=== PATIENT | female | born 1945 | race American Indian/Alaskan Native ===

== ENCOUNTER 2018-09-11 15:27 | Inpatient (IN) | payer MEDICARE ==
[2018-09-11] MEDS ORDERED: NACL 0.9% 1000 ML 1,000 ML IV ONE (15:40)
[2018-09-11 16:45] LABS: Basophils % (Auto) 0.7 % (0.0-1.8); Eosinophils % (Auto) 0.3 % (0.0-4.3); Hematocrit 35.9 % (30.3-42.9); Hemoglobin 12.2 gm/dl (10.1-14.3); Lymphocytes # (Auto) 1.3 K/mm3 (1.2-5.4); Lymphocytes % (Auto) 21.2 % (13.4-35.0); Mean Corpuscular HGB Conc 34 % (30-34); Mean Corpuscular Volume 88 fl (79-97); Monocytes # (Auto) 0.4 K/mm3 (0.0-0.8); Monocytes % (Auto) 6.7 % (0.0-7.3); Platelet Count 307 K/mm3 (140-440); Red Blood Count 4.07 M/mm3 (3.65-5.03); Red Cell Distribution Width 15.2 % (13.2-15.2)
[2018-09-11 17:05] LABS: Alanine Aminotransferase 11 units/L (7-56); Albumin 4.2 g/dL (3.9-5); BUN/Creatinine Ratio 21; Blood Urea Nitrogen 19 mg/dL (7-17); Calcium 9.1 mg/dL (8.4-10.2); Hemolysis Index 8
--- NOTE | 2018-09-11 17:58 | Emergency Department Report ---
ED General Adult HPI - General Chief complaint: GI Bleed Stated complaint: RECTUM BLEEDING Time Seen by Provider: 09/11/18 17:00 Source: patient Mode of arrival: Ambulatory Limitations: No Limitations - History of Present Illness Initial comments: patient presents to the ED for dark blood per rectum x 3 that started this morning. The patient denies abdominal or rectal pain. has never had a colonoscopy. Patient also denies CP,SOB, or GALAN. Patient also denies been on iron supplements or taking Pepto-Bismol. Patient further denies being on blood thinners or antiplatelet medications -: Sudden Radiation: non-radiation Severity scale (0 -10): 0 Consistency: constant Improves with: none Worsens with: none Associated Symptoms: denies other symptoms Treatments Prior to Arrival: none - Related Data Allergies Allergy/AdvReac Type Severity Reaction Status Date / Time No Known Allergies Allergy Unverified 09/11/18 15:40 ED Review of Systems ROS: Stated complaint: RECTUM BLEEDING Other details as noted in HPI Comment: All other systems reviewed and negative Constitutional: denies: chills, fever Eyes: denies: eye pain, eye discharge, vision change ENT: denies: ear pain, throat pain Respiratory: denies: cough, shortness of breath, wheezing Cardiovascular: denies: chest pain, palpitations Endocrine: no symptoms reported Gastrointestinal: melena. denies: abdominal pain, nausea, diarrhea Genitourinary: denies: urgency, dysuria, discharge Musculoskeletal: denies: back pain, joint swelling, arthralgia Skin: denies: rash, lesions Neurological: denies: headache, weakness, paresthesias Psychiatric: denies: anxiety, depression Hematological/Lymphatic: denies: easy bleeding, easy bruising ED Past Medical Hx - Past Medical History Hx Hypertension: Yes Hx Diabetes: Yes - Surgical History Past Surgical History?: No - Social History Smoking Status: Never Smoker Substance Use Type: None ED Physical Exam - General Limitations: No Limitations General appearance: alert, in no apparent distress - Head Head exam: Present: atraumatic, normocephalic - Eye Eye exam: Present: normal appearance, PERRL, EOMI - ENT ENT exam: Present: mucous membranes moist - Neck Neck exam: Present: normal inspection - Respiratory Respiratory exam: Present: normal lung sounds bilaterally. Absent: respiratory distress, wheezes, rales - Cardiovascular Cardiovascular Exam: Present: regular rate, normal rhythm. Absent: systolic murmur, diastolic murmur, rubs, gallop - GI/Abdominal GI/Abdominal exam: Present: soft, normal bowel sounds. Absent: distended, tenderness - Rectal Rectal exam: Present: heme (+) stool (chaperoned by Nurse fina Pool), black stool - Extremities Exam Extremities exam: Present: normal inspection - Back Exam Back exam: Present: normal inspection - Neurological Exam Neurological exam: Present: alert, oriented X3, CN II-XII intact. Absent: motor sensory deficit - Psychiatric Psychiatric exam: Present: normal affect, normal mood - Skin Skin exam: Present: warm, dry, intact, normal color. Absent: rash ED Course Vital Signs 09/11/18 15:38 Temperature 98.4 F Pulse Rate 126 H Respiratory 16 Rate Blood Pressure 156/83 O2 Sat by Pulse 100 Oximetry ED Medical Decision Making - Lab Data Result diagrams: 09/11/18 16:09 09/11/18 16:09 Lab Results 09/11/18 09/11/18 09/11/18 Range/Units 16:09 16:09 16:09 WBC 6.2 (4.5-11.0) K/mm3 RBC 4.07 (3.65-5.03) M/mm3 Hgb 12.2 (10.1-14.3) gm/dl Hct 35.9 (30.3-42.9) % MCV 88 (79-97) fl MCH 30 (28-32) pg MCHC 34 (30-34) % RDW 15.2 (13.2-15.2) % Plt Count 307 (140-440) K/mm3 Lymph % (Auto) 21.2 (13.4-35.0) % [place] % (Auto) 6.7 (0.0-7.3) % Eos % (Auto) 0.3 (0.0-4.3) % Baso % (Auto) 0.7 (0.0-1.8) % Lymph # 1.3 (1.2-5.4) K/mm3 [place] # 0.4 (0.0-0.8) K/mm3 Eos # 0.0 (0.0-0.4) K/mm3 Baso # 0.0 (0.0-0.1) K/mm3 Seg Neutrophils % 71.1 H (40.0-70.0) % Seg Neutrophils # 4.4 (1.8-7.7) K/mm3 PT (12.2-14.9) Sec. INR (0.87-1.13) APTT (24.2-36.6) Sec. Sodium 137 (137-145) mmol/L Potassium 4.3 (3.6-5.0) mmol/L Chloride 97.2 L (98-107) mmol/L Carbon Dioxide 23 (22-30) mmol/L Anion Gap 21 mmol/L BUN 19 H (7-17) mg/dL Creatinine 0.9 (0.7-1.2) mg/dL Estimated GFR > 60 ml/min BUN/Creatinine Ratio 21 % Glucose 249 H (65-100) mg/dL Calcium 9.1 (8.4-10.2) mg/dL Total Bilirubin 0.20 (0.1-1.2) mg/dL AST 13 (5-40) units/L ALT 11 (7-56) units/L Alkaline Phosphatase 47 (35-129) units/L Total Protein 7.6 (6.3-8.2) g/dL Albumin 4.2 (3.9-5) g/dL Albumin/Globulin Ratio 1.2 % Urine Color (Yellow) Urine Turbidity (Clear) Urine pH (5.0-7.0) Ur Specific [place] (1.003-1.030) Urine Protein (Negative) mg/dL Urine Glucose (UA) (Negative) mg/dL Urine Ketones (Negative) mg/dL Urine Blood (Negative) Urine Nitrite (Negative) Urine Bilirubin (Negative) Urine Urobilinogen (<2.0) mg/dL Ur Leukocyte Esterase (Negative) Urine WBC (Auto) (0.0-6.0) /HPF Urine RBC (Auto) (0.0-6.0) /HPF U Epithel Cells (Auto) (0-13.0) /HPF Hyaline Casts /LPF Blood Type O POSITIVE Antibody Screen Negative 09/11/18 09/11/18 Range/Units 17:57 18:18 WBC (4.5-11.0) K/mm3 RBC (3.65-5.03) M/mm3 Hgb (10.1-14.3) gm/dl Hct (30.3-42.9) % MCV (79-97) fl MCH (28-32) pg MCHC (30-34) % RDW (13.2-15.2) % Plt Count (140-440) K/mm3 Lymph % (Auto) (13.4-35.0) % [place] % (Auto) (0.0-7.3) % Eos % (Auto) (0.0-4.3) % Baso % (Auto) (0.0-1.8) % Lymph # (1.2-5.4) K/mm3 [place] # (0.0-0.8) K/mm3 Eos # (0.0-0.4) K/mm3 Baso # (0.0-0.1) K/mm3 Seg Neutrophils % (40.0-70.0) % Seg Neutrophils # (1.8-7.7) K/mm3 PT 12.8 (12.2-14.9) Sec. INR 0.92 (0.87-1.13) APTT 28.6 (24.2-36.6) Sec. Sodium (137-145) mmol/L Potassium (3.6-5.0) mmol/L Chloride (98-107) mmol/L Carbon Dioxide (22-30) mmol/L Anion Gap mmol/L BUN (7-17) mg/dL Creatinine (0.7-1.2) mg/dL Estimated GFR ml/min BUN/Creatinine Ratio % Glucose (65-100) mg/dL Calcium (8.4-10.2) mg/dL Total Bilirubin (0.1-1.2) mg/dL AST (5-40) units/L ALT (7-56) units/L Alkaline Phosphatase (35-129) units/L Total Protein (6.3-8.2) g/dL Albumin (3.9-5) g/dL Albumin/Globulin Ratio % Urine Color Yellow (Yellow) Urine Turbidity Clear (Clear) Urine pH 5.0 (5.0-7.0) Ur Specific [place] 1.013 (1.003-1.030) Urine Protein 30 mg/dl (Negative) mg/dL Urine Glucose (UA) 150 (Negative) mg/dL Urine Ketones 20 (Negative) mg/dL Urine Blood Sm (Negative) Urine Nitrite Neg (Negative) Urine Bilirubin Neg (Negative) Urine Urobilinogen < 2.0 (<2.0) mg/dL Ur Leukocyte Esterase Sm (Negative) Urine WBC (Auto) 11.0 H (0.0-6.0) /HPF Urine RBC (Auto) 5.0 (0.0-6.0) /HPF U Epithel Cells (Auto) 1.0 (0-13.0) /HPF Hyaline Casts 3 /LPF Blood Type Antibody Screen - Radiology Data Radiology results: report reviewed Referring Physician: ALETA MORAN Patient Name: LIEN CALL Date of : 1945 Sex: Female Report Date: 2018-09-11 Report Status: Finalized [facility] [address] [place] [address] Cat Scan Report Signed Patient: LIEN CALL MR#: [id number] : 1945 Acct:[id number] Age/Sex: 73 / F ADM Date: 09/11/18 Loc: ED Attending Dr: Ordering Physician: ALETA MORAN MD Date of Service: 09/11/18 Procedure(s): CT abdomen pelvis wo con Accession Number(s): [id number] cc: ALETA MORAN MD FINAL REPORT EXAM: CT ABDOMEN PELVIS WO CON HISTORY: gi bleed TECHNIQUE: CT examination of the abdomen and pelvis without IV contrast PRIORS: None. FINDINGS: Slight bronchiectasis both lung bases. Degenerative change in the regional skeleton. No acute fracture. Normal noncontrast appearance of the liver, gallbladder, adrenals, pancreas, and spleen. Normal caliber abdominal aorta with severe calcified atherosclerotic plaque extending into the iliac and femoral arteries. Normal caliber IVC. A nonspecific, smoothly marginated, low density, simple appearing left renal lesion is statistically most likely a cyst. Otherwise normal-appearing kidneys and visible ureteral segments. Pelvic ureters partly obscured by adjacent anatomy. Very small fat containing umbilical hernia. Small fat containing left inguinal hernia. No retroperitoneal adenopathy. No evidence of mesenteric mass. Normal-appearing stomach and duodenum. No small bowel distention in the abdomen and pelvis. No pelvic free fluid. Normal-appearing urinary bladder, uterus, adnexae, and rectum. Moderate to severe diverticulosis in the distal transverse colon, descending colon, and sigmoid colon. There is nonspecific scattered mural thickening in this portion of colon which may be sequela of prior diverticulitis. Differential includes current mild diverticulitis especially in the region of the descending colon and sigmoid colon junction where there is slight adjacent fat stranding. No perforation or diverticular abscess. Moderate diverticulosis is also noted in the ascending and proximal/mid transverse colon diffusely. No definite associ ated mural thickening. Diverticulosis also present in the cecum. No gross ascites, free air, or colonic distention. Normal-appearing terminal ileum and appendix. IMPRESSION: Extensive diverticulosis from cecum to distal sigmoid colon. Scattered mural thickening in the descending colon and sigmoid colon may be chronic sequela of prior diverticulitis. Differential includes mild acute diverticulitis at the junction between the descending and sigmoid colon since there is adjacent fat stranding in this location. Slight bronchiectasis both lung bases Small fat containing left inguinal hernia and very small fat containing umbilical hernia Transcribed By: DIANE Dictated By: JILLIAN KHAN MD Electronically Authenticated By: JILLIAN KHAN MD Signed Date/Time: 09/11/181853 DD/ 52 TD/TT: 09/11/181852 - Medical Decision Making Discussed results with patient Critical care attestation.: If time is entered above; I have spent that time in minutes in the direct care of this critically ill patient, excluding procedure time. ED Disposition Clinical Impression: UTI (urinary tract infection), GI bleed, Diverticulosis Disposition: OP ADMIT IP TO THIS HOSP Is pt being admited?: Yes Does the pt Need Aspirin: No Condition: Fair Referrals: ALEC GAMBLE MD [Primary Care Provider] - 3-5 Days Forms: Accompanied Note
[2018-09-11 18:43] LABS: INR 0.92 (0.87-1.13); Partial Thromboplastin Time 28.6 Sec. (24.2-36.6)
[2018-09-11 18:45] LABS: Bilirubin,Urine NEG (Negative); Blood,Urine SM (Negative); Color,Urine Yellow (Yellow); Hyaline Casts,Urine 3 /LPF; Urobilinogen,Urine < 2.0 mg/dL (<2.0)
--- NOTE | 2018-09-11 18:54 | Cat Scan Report ---
FINAL REPORT EXAM: CT ABDOMEN PELVIS WO CON HISTORY: gi bleed TECHNIQUE: CT examination of the abdomen and pelvis without IV contrast PRIORS: None. FINDINGS: Slight bronchiectasis both lung bases. Degenerative change in the regional skeleton. No acute fracture. Normal noncontrast appearance of the liver, gallbladder, adrenals, pancreas, and spleen. Normal calib er abdominal aorta with severe calcified atherosclerotic plaque extending into the iliac and femoral arteries. Normal caliber IVC. A nonspecific, smoothly marginated, low density, simple appearing left renal lesion is statistically most likely a cyst. Otherwise normal-appearing kidneys and visible ureteral segments. Pelvic ureters partly obscured by adjacent anatomy. Very small fat containing umbilical hernia. Small fat containing left inguinal hernia. No retroperitoneal adenopathy. No evidence of mesenteric mass. Normal-appearing stomach and duodenum. No small bowel distention in the abdomen and pelvis. No pelvic free fluid. Normal-appearing urinary bladder, uterus, adnexae, and rectum. Moderate to severe diverticulosis in the distal transverse colon, descending colon, and sigmoid colon . There is nonspecific scattered mural thickening in this portion of colon which may be sequela of pr ior diverticulitis. Differential includes current mild diverticulitis especially in the region of the descending colon and sigmoid colon junction where there is slight adjacent fat stranding. No perfora tion or diverticular abscess. Moderate diverticulosis is also noted in the ascending and proximal/mid transverse colon diffusely. N o definite associated mural thickening. Diverticulosis also present in the cecum. No gross ascites, free air, or colonic distention. Normal-appearing terminal ileum and appendix. IMPRESSION: Extensive diverticulosis from cecum to distal sigmoid colon. Scattered mural thickening in the descen ding colon and sigmoid colon may be chronic sequela of prior diverticulitis. Differential includes mi ld acute diverticulitis at the junction between the descending and sigmoid colon since there is adjac ent fat stranding in this location. Slight bronchiectasis both lung bases Small fat containing left inguinal hernia and very small fat containing umbilical hernia
[2018-09-11] MEDS ORDERED: FLAGYL 500 MG/100 ML 500 MG/100 ML BAG IV ONE ×2 (19:34→20:41)
[2018-09-11] MEDS ORDERED: LEVAQUIN 750MG/150ML 750 MG/150 ML BAG IV ONE (19:34)
[2018-09-12] MEDS ORDERED: ZOFRAN IV PRN
[2018-09-12] MEDS ORDERED: SODIUM CHLORIDE FLUSH SYRINGE 10 ML IV PRN
[2018-09-12] MEDS ORDERED: DILAUDID IV PRN
[2018-09-12] MEDS ORDERED: TYLENOL PO PRN
[2018-09-12] MEDS: D5NS 1,000 ML IV SCH ×2 (01:18→14:46)
[2018-09-12] MEDS: PROTONIX IV SCH ×3 (01:18→22:32)
[2018-09-12 02:07] LABS: Hematocrit 33.4 % (30.3-42.9)
--- NOTE | 2018-09-12 05:56 | History and Physical Report ---
History of Present Illness Date of examination: 09/11/18 Date of admission: 09/11/18 19:35 Chief complaint: Lower GI bleed since AM History of present illness: 73 year old female presents to ER for melanotic stools since AM.3 episodes till now.No Hematemesis.No abd pain.No syncope or Light headedness.Not on any NSAIDS or blood thinners.No exacerbating or relieving factors.No fever or chills.No recent weight loss. Past Medical History Hx Hypertension: Yes Hx Diabetes: Yes Surgical History Past Surgical History?: No Social History Smoking Status: Never Smoker Substance Use Type: None Review of systems ROS: Stated complaint: RECTUM BLEEDING Other details as noted in HPI Comment: All other systems reviewed and negative Constitutional: denies: chills, fever Eyes: denies: eye pain, eye discharge, vision change ENT: denies: ear pain, throat pain Respiratory: denies: cough, shortness of breath, wheezing Cardiovascular: denies: chest pain, palpitations Endocrine: no symptoms reported Gastrointestinal: melena. denies: abdominal pain, nausea, diarrhea Genitourinary: denies: urgency, dysuria, discharge Musculoskeletal: denies: back pain, joint swelling, arthralgia Skin: denies: rash, lesions Neurological: denies: headache, weakness, paresthesias Psychiatric: denies: anxiety, depression Hematological/Lymphatic: denies: easy bleeding, easy bruising Medications and Allergies Allergies Allergy/AdvReac Type Severity Reaction Status Date / Time No Known Allergies Allergy Unverified 09/11/18 15:40 Home Medications Medication Instructions Recorded Confirmed Last Taken Type Lisinopril/Hydrochlorothiazide 1 each PO DAILY 09/11/18 09/11/18 Unknown History [Zestoretic 20-12.5 mg] Potassium Chloride [K-Dur] 10 meq PO DAILY 09/11/18 09/11/18 Unknown History Pravastatin [Pravachol] 20 mg PO DAILY 09/11/18 09/11/18 Unknown History amLODIPine [Norvasc] 10 mg PO DAILY 09/11/18 09/11/18 Unknown History glipiZIDE [Glucotrol] 5 mg PO BID 09/11/18 09/11/18 Unknown History metFORMIN [Glucophage] 500 mg PO TID 09/11/18 09/11/18 Unknown History Active Meds: Active Medications Acetaminophen (Tylenol) 650 mg PO Q4H PRN PRN Reason: Pain MILD(1-3)/Fever >100.5/GALAN Hydromorphone HCl (Dilaudid) 0.5 mg IV Q3H PRN PRN Reason: Pain , Severe (7-10) Dextrose/Sodium Chloride (D5ns) 1,000 mls @ 75 mls/hr IV DIRECT [facility] Last Admin: 09/12/18 01:18 Dose: 75 mls/hr Documented by: Insulin Human Lispro (Humalog) 0 unit SUB-Q Q6HR [facility]; Protocol Ondansetron HCl (Zofran) 4 mg IV Q8H PRN PRN Reason: Nausea And Vomiting Pantoprazole Sodium (Protonix) 40 mg IV BID [facility] Last Admin: 09/12/18 01:18 Dose: 40 mg Documented by: Sodium Chloride (Sodium Chloride Flush Syringe 10 Ml) 10 ml IV BID [facility] Sodium Chloride (Sodium Chloride Flush Syringe 10 Ml) 10 ml IV PRN PRN PRN Reason: LINE FLUSH Exam - Constitutional Vitals: Temp Pulse Resp BP Pulse Ox 98.1 F 88 18 94/52 98 09/12/18 02:57 09/12/18 02:57 09/12/18 02:57 09/12/18 02:57 09/12/18 02:57 General appearance: Present: no acute distress, well-nourished - EENT Eyes: Present: PERRL ENT: hearing intact, clear oral mucosa - Neck Neck: Present: supple, normal ROM - Respiratory Respiratory effort: normal Respiratory: bilateral: CTA - Cardiovascular Heart rate: 78 Rhythm: regular Heart Sounds: Present: S1 & S2. Absent: rub, click - Extremities Extremities: no ischemia, pulses intact, pulses symmetrical, No edema Peripheral Pulses: within normal limits - Abdominal General gastrointestinal: Present: soft, non-tender, non-distended, normal bowel sounds Female genitourinary: Present: normal - Rectal Rectal Exam: stool bloody - Integumentary Integumentary: Present: clear, warm, dry - Musculoskeletal Musculoskeletal: gait normal, strength equal bilaterally - Psychiatric Psychiatric: appropriate mood/affect, intact judgment & insight - Neurologic Neurologic: CNII-XII intact, moves all extremities - Allied Health Allied health notes reviewed: nursing, case management Results - Labs CBC & Chem 7: 09/12/18 01:49 09/11/18 16:09 Labs: Laboratory Last Values WBC 6.2 K/mm3 (4.5-11.0) 09/11/18 16:09 RBC 4.07 M/mm3 (3.65-5.03) 09/11/18 16:09 Hgb 11.0 gm/dl (10.1-14.3) 09/12/18 01:49 Hct 33.4 % (30.3-42.9) 09/12/18 01:49 MCV 88 fl (79-97) 09/11/18 16:09 MCH 30 pg (28-32) 09/11/18 16:09 MCHC 34 % (30-34) 09/11/18 16:09 RDW 15.2 % (13.2-15.2) 09/11/18 16:09 Plt Count 307 K/mm3 (140-440) 09/11/18 16:09 Lymph % (Auto) 21.2 % (13.4-35.0) 09/11/18 16:09 [place] % (Auto) 6.7 % (0.0-7.3) 09/11/18 16:09 Eos % (Auto) 0.3 % (0.0-4.3) 09/11/18 16:09 Baso % (Auto) 0.7 % (0.0-1.8) 09/11/18 16:09 Lymph # 1.3 K/mm3 (1.2-5.4) 09/11/18 16:09 [place] # 0.4 K/mm3 (0.0-0.8) 09/11/18 16:09 Eos # 0.0 K/mm3 (0.0-0.4) 09/11/18 16:09 Baso # 0.0 K/mm3 (0.0-0.1) 09/11/18 16:09 Seg Neutrophils % 71.1 % (40.0-70.0) H 09/11/18 16:09 Seg Neutrophils # 4.4 K/mm3 (1.8-7.7) 09/11/18 16:09 PT 12.8 Sec. (12.2-14.9) 09/11/18 17:57 INR 0.92 (0.87-1.13) 09/11/18 17:57 APTT 28.6 Sec. (24.2-36.6) 09/11/18 17:57 Sodium 137 mmol/L (137-145) 09/11/18 16:09 Potassium 4.3 mmol/L (3.6-5.0) 09/11/18 16:09 Chloride 97.2 mmol/L (98-107) L 09/11/18 16:09 Carbon Dioxide 23 mmol/L (22-30) 09/11/18 16:09 Anion Gap 21 mmol/L 09/11/18 16:09 BUN 19 mg/dL (7-17) H 09/11/18 16:09 Creatinine 0.9 mg/dL (0.7-1.2) 09/11/18 16:09 Estimated GFR > 60 ml/min 09/11/18 16:09 BUN/Creatinine Ratio 21 % 09/11/18 16:09 Glucose 249 mg/dL (65-100) H 09/11/18 16:09 Hemoglobin A1c 9.2 % (4-6) H 09/12/18 01:49 Calcium 9.1 mg/dL (8.4-10.2) 09/11/18 16:09 Total Bilirubin 0.20 mg/dL (0.1-1.2) 09/11/18 16:09 AST 13 units/L (5-40) 09/11/18 16:09 ALT 11 units/L (7-56) 09/11/18 16:09 Alkaline Phosphatase 47 units/L (35-129) 09/11/18 16:09 Total Protein 7.6 g/dL (6.3-8.2) 09/11/18 16:09 Albumin 4.2 g/dL (3.9-5) 09/11/18 16:09 Albumin/Globulin Ratio 1.2 % 09/11/18 16:09 Urine Color Yellow (Yellow) 09/11/18 18:18 Urine Turbidity Clear (Clear) 09/11/18 18:18 Urine pH 5.0 (5.0-7.0) 09/11/18 18:18 Ur Specific [place] 1.013 (1.003-1.030) 09/11/18 18:18 Urine Protein 30 mg/dl mg/dL (Negative) 09/11/18 18:18 Urine Glucose (UA) 150 mg/dL (Negative) 09/11/18 18:18 Urine Ketones 20 mg/dL (Negative) 09/11/18 18:18 Urine Blood Sm (Negative) 09/11/18 18:18 Urine Nitrite Neg (Negative) 09/11/18 18:18 Urine Bilirubin Neg (Negative) 09/11/18 18:18 Urine Urobilinogen < 2.0 mg/dL (<2.0) 09/11/18 18:18 Ur Leukocyte Esterase Sm (Negative) 09/11/18 18:18 Urine WBC (Auto) 11.0 /HPF (0.0-6.0) H 09/11/18 18:18 Urine RBC (Auto) 5.0 /HPF (0.0-6.0) 09/11/18 18:18 U Epithel Cells (Auto) 1.0 /HPF (0-13.0) 09/11/18 18:18 Hyaline Casts 3 /LPF 09/11/18 18:18 Blood Type O POSITIVE 09/11/18 16:09 Antibody Screen Negative 09/11/18 16:09 Short CBC 09/11/18 09/12/18 Range/Units 16:09 01:49 WBC 6.2 (4.5-11.0) K/mm3 Hgb 12.2 11.0 (10.1-14.3) gm/dl Hct 35.9 33.4 (30.3-42.9) % Plt Count 307 (140-440) K/mm3 BMP 09/11/18 16:09 Sodium 137 Potassium 4.3 Chloride 97.2 L Carbon Dioxide 23 BUN 19 H Creatinine 0.9 Glucose 249 H Calcium 9.1 Liver Function 09/11/18 Range/Units 16:09 Total Bilirubin 0.20 (0.1-1.2) mg/dL AST 13 (5-40) units/L ALT 11 (7-56) units/L Alkaline Phosphatase 47 (35-129) units/L Albumin 4.2 (3.9-5) g/dL Urine 09/11/18 Range/Units 18:18 Urine Color Yellow (Yellow) Urine pH 5.0 (5.0-7.0) Ur Specific [place] 1.013 (1.003-1.030) Urine Protein 30 mg/dl (Negative) mg/dL Urine Glucose (UA) 150 (Negative) mg/dL - Imaging and Cardiology CT scan - abdomen: report reviewed Imaging and Cardiology: CT Abdomen IMPRESSION: Extensive diverticulosis from cecum to distal sigmoid colon . Scattered mural thickening in the descending colon and sigmoid colon may be chronic sequela of prior diverticulitis . Differential includes mild acute diverticulitis at the junction between the descending and sigmoid colon since there is adjacent fat stranding in this location. Slight bronchiectasis both lung bases Small fat containing left inguinal hernia and very small fat containing umbilical hernia Assessment and Plan Advance Directives: Yes (Full code) VTE prophylaxis?: Mechanical Plan of care discussed with patient/family: Yes - Patient Problems (1) Diverticulosis Current Visit: Yes Status: Acute (2) GI bleed Current Visit: Yes Status: Acute Plan to address problem: Possible diverticular bleed Monitor H/H and trasfuse as necessary Keep NPo GI consult IV protonix initiated (3) UTI (urinary tract infection) Current Visit: Yes Status: Acute Qualifiers: Urinary tract infection type: acute cystitis Plan to address problem: On IV Ceftriaxone (4) HTN (hypertension) Current Visit: Yes Status: Chronic Qualifiers: Hypertension type: essential hypertension Qualified Code(s): I10 - Essential (primary) hypertension Plan to address problem: On Catapress patdv (5) T2DM (type 2 diabetes mellitus) Current Visit: Yes Status: Chronic Qualifiers: Diabetes mellitus intermediate insulin use: without rat exterminator use Plan to address problem: Coverage for now (6) DVT prophylaxis Current Visit: Yes Status: Acute Plan to address problem: SCD's only
[2018-09-12] MEDS ORDERED: ROCEPHIN/NS 1 GM/50 ML 1 GM/50 ML BAG IV SCH (06:04)
[2018-09-12] MEDS: HumaLOG SUB-Q SCH ×3 (06:47→17:29)
[2018-09-12 07:28] LABS: Hematocrit 31.5 % (30.3-42.9); Hemoglobin 10.5 gm/dl (10.1-14.3)
--- NOTE | 2018-09-12 09:19 | Gastroenterology Consultation ---
Addendum entered and electronically signed by TRANG MINAYA MD 09/12/18 18:11: pt seen and examined, chart reviewed, consult below reviewed - pt presents w/ rectal bleeding and anemia vss p.e.: nad abd: soft - EGD/colonoscopy in am - other rec as outlined below Original Note: History of Present Illness - Reason for Consult Consult date: 09/12/18 GI bleed Requesting physician: MAGNOLIA LINO - History of Present Illness Patient is a 73 y/o female with PMH of HTN and DM who presented to ED with c/o dark bloody stool to which GI has been consulted. This morning patient was resting in bed w/o acute distress. She reports multiple episodes yesterday of dark red blood stool. Last episode overnight with no active signs of bleeding this am. No hematemesis. Denies fever, CP, SOB, wt loss, abd pain, N/V, dysphagia, diarrhea, or constipation. Takes ASA occasionally at home. No hx of previous GI bleeding, PUD, or liver disease. No prior EGD or colonoscopy. Fhx of GI cancers is unknown. Past History Past Medical History: diabetes, hyperlipidemia Past Surgical History: No surgical history Social history: denies: smoking, alcohol abuse Medications and Allergies Allergies Allergy/AdvReac Type Severity Reaction Status Date / Time No Known Allergies Allergy Unverified 09/11/18 15:40 Home Medications Medication Instructions Recorded Confirmed Last Taken Type Lisinopril/Hydrochlorothiazide 1 each PO DAILY 09/11/18 09/11/18 Unknown History [Zestoretic 20-12.5 mg] Potassium Chloride [K-Dur] 10 meq PO DAILY 09/11/18 09/11/18 Unknown History Pravastatin [Pravachol] 20 mg PO DAILY 09/11/18 09/11/18 Unknown History amLODIPine [Norvasc] 10 mg PO DAILY 09/11/18 09/11/18 Unknown History glipiZIDE [Glucotrol] 5 mg PO BID 09/11/18 09/11/18 Unknown History metFORMIN [Glucophage] 500 mg PO TID 09/11/18 09/11/18 Unknown History Active Meds: Active Medications Acetaminophen (Tylenol) 650 mg PO Q4H PRN PRN Reason: Pain MILD(1-3)/Fever >100.5/GALAN Hydromorphone HCl (Dilaudid) 0.5 mg IV Q3H PRN PRN Reason: Pain , Severe (7-10) Dextrose/Sodium Chloride (D5ns) 1,000 mls @ 75 mls/hr IV DIRECT [facility] Last Admin: 09/12/18 01:18 Dose: 75 mls/hr Documented by: Ceftriaxone Sodium (Rocephin/Ns 1 Gm/50 Ml) 1 gm in 50 mls @ 100 mls/hr IV Q24HR [facility]; Protocol Last Admin: 09/12/18 06:48 Dose: 100 mls/hr Documented by: Insulin Human Lispro (Humalog) 0 unit SUB-Q Q6HR [facility]; Protocol Last Admin: 09/12/18 06:47 Dose: 6 unit Documented by: Ondansetron HCl (Zofran) 4 mg IV Q8H PRN PRN Reason: Nausea And Vomiting Pantoprazole Sodium (Protonix) 40 mg IV BID [facility] Last Admin: 09/12/18 01:18 Dose: 40 mg Documented by: Sodium Chloride (Sodium Chloride Flush Syringe 10 Ml) 10 ml IV BID [facility] Sodium Chloride (Sodium Chloride Flush Syringe 10 Ml) 10 ml IV PRN PRN PRN Reason: LINE FLUSH medications reviewed/updated as required Review of Systems - Review of Systems All systems: negative Gastrointestinal: other (dark bloody stool) Exam - Constitutional Vital Signs: Temp Pulse Resp BP Pulse Ox 98.1 F 75 18 94/52 98 09/12/18 02:57 09/12/18 06:18 09/12/18 02:57 09/12/18 02:57 09/12/18 02:57 General appearance: no acute distress - EENT Eyes: PERRL, EOM intact ENT: hearing intact - Respiratory Respiratory: bilateral: CTA - Cardiovascular Rhythm: regular Heart Sounds: Present: S1 & S2 - Gastrointestinal General gastrointestinal: Present: soft, non-tender, non-distended, normal bowel sounds Rectal Exam: other (dark red blood-stoner out present during exam (Ashlie ORO)) - Neurologic Neurological: alert and oriented x3 - Labs CBC & Chem 7: 09/12/18 06:39 09/11/18 16:09 Lab Results: Laboratory Results - last 24 hr 09/11/18 09/11/18 09/11/18 16:09 16:09 16:09 WBC 6.2 RBC 4.07 Hgb 12.2 Hct 35.9 MCV 88 MCH 30 MCHC 34 RDW 15.2 Plt Count 307 Lymph % (Auto) 21.2 Price % (Auto) 6.7 Eos % (Auto) 0.3 Baso % (Auto) 0.7 Lymph # 1.3 Price # 0.4 Eos # 0.0 Baso # 0.0 Seg Neutrophils % 71.1 H Seg Neutrophils # 4.4 PT INR APTT Sodium 137 Potassium 4.3 Chloride 97.2 L Carbon Dioxide 23 Anion Gap 21 BUN 19 H Creatinine 0.9 Estimated GFR > 60 BUN/Creatinine Ratio 21 Glucose 249 H POC Glucose Hemoglobin A1c Calcium 9.1 Total Bilirubin 0.20 AST 13 ALT 11 Alkaline Phosphatase 47 Total Protein 7.6 Albumin 4.2 Albumin/Globulin Ratio 1.2 Urine Color Urine Turbidity Urine pH Ur Specific [place] Urine Protein Urine Glucose (UA) Urine Ketones Urine Blood Urine Nitrite Urine Bilirubin Urine Urobilinogen Ur Leukocyte Esterase Urine WBC (Auto) Urine RBC (Auto) U Epithel Cells (Auto) Hyaline Casts Blood Type O POSITIVE Antibody Screen Negative 09/11/18 09/11/18 09/12/18 17:57 18:18 01:49 WBC RBC Hgb Hct MCV MCH MCHC RDW Plt Count Lymph % (Auto) Price % (Auto) Eos % (Auto) Baso % (Auto) Lymph # Price # Eos # Baso # Seg Neutrophils % Seg Neutrophils # PT 12.8 INR 0.92 APTT 28.6 Sodium Potassium Chloride Carbon Dioxide Anion Gap BUN Creatinine Estimated GFR BUN/Creatinine Ratio Glucose POC Glucose Hemoglobin A1c 9.2 H Calcium Total Bilirubin AST ALT Alkaline Phosphatase Total Protein Albumin Albumin/Globulin Ratio Urine Color Yellow Urine Turbidity Clear Urine pH 5.0 Ur Specific [place] 1.013 Urine Protein 30 mg/dl Urine Glucose (UA) 150 Urine Ketones 20 Urine Blood Sm Urine Nitrite Neg Urine Bilirubin Neg Urine Urobilinogen < 2.0 Ur Leukocyte Esterase Sm Urine WBC (Auto) 11.0 H Urine RBC (Auto) 5.0 U Epithel Cells (Auto) 1.0 Hyaline Casts 3 Blood Type Antibody Screen 09/12/18 09/12/18 09/12/18 01:49 06:39 06:47 WBC RBC Hgb 11.0 10.5 Hct 33.4 31.5 MCV MCH MCHC RDW Plt Count Lymph % (Auto) Price % (Auto) Eos % (Auto) Baso % (Auto) Lymph # Price # Eos # Baso # Seg Neutrophils % Seg Neutrophils # PT INR APTT Sodium Potassium Chloride Carbon Dioxide Anion Gap BUN Creatinine Estimated GFR BUN/Creatinine Ratio Glucose POC Glucose 303 H Hemoglobin A1c Calcium Total Bilirubin AST ALT Alkaline Phosphatase Total Protein Albumin Albumin/Globulin Ratio Urine Color Urine Turbidity Urine pH Ur Specific [place] Urine Protein Urine Glucose (UA) Urine Ketones Urine Blood Urine Nitrite Urine Bilirubin Urine Urobilinogen Ur Leukocyte Esterase Urine WBC (Auto) Urine RBC (Auto) U Epithel Cells (Auto) Hyaline Casts Blood Type Antibody Screen 09/12/18 08:22 WBC RBC Hgb Hct MCV MCH MCHC RDW Plt Count Lymph % (Auto) Price % (Auto) Eos % (Auto) Baso % (Auto) Lymph # Price # Eos # Baso # Seg Neutrophils % Seg Neutrophils # PT INR APTT Sodium Potassium Chloride Carbon Dioxide Anion Gap BUN Creatinine Estimated GFR BUN/Creatinine Ratio Glucose POC Glucose 237 H Hemoglobin A1c Calcium Total Bilirubin AST ALT Alkaline Phosphatase Total Protein Albumin Albumin/Globulin Ratio Urine Color Urine Turbidity Urine pH Ur Specific [place] Urine Protein Urine Glucose (UA) Urine Ketones Urine Blood Urine Nitrite Urine Bilirubin Urine Urobilinogen Ur Leukocyte Esterase Urine WBC (Auto) Urine RBC (Auto) U Epithel Cells (Auto) Hyaline Casts Blood Type Antibody Screen Assessment and Plan 1.GI bleed -INR 0.92 -H/H 10.5/31.5 -continue to monitor H/H and transfuse as needed -hold blood thinning medications -patient reports an acute onset of rectal bleeding yesterday with dark red bloody stools. No hematemesis, abd pain, or N/V. -no active signs of bleeding this am-rectal exam revealed dark red blood -etiology- unclear if upper vs lower source -will schedule for EGD today, if negative possible colonoscopy tomorrow -Keep NPO -continue PPI -continue supportive care -will follow
[2018-09-12] MEDS: SODIUM CHLORIDE FLUSH SYRINGE 10 ML IV SCH (10:00)
--- NOTE | 2018-09-12 13:25 | Progress Note ---
Assessment and Plan Assessment and plan: Rectal bleeding - H&H stable - No active bleeding - CT showed diverticulosis - GI consulted and colonoscopy tomorrow Diabetes mellitus - Sliding scale insulin and added Lantus daily at bedtime DVT prophylaxis - SCDs because of GI bleed Disposition -Continue inpatient care and possible discharge tomorrow after colonoscopy History Interval history: Patient was seen and evaluated this morning, patient was added and oriented. Patient didn't have any bleeding overnight. Hospitalist Physical - Physical exam Narrative exam: Not in cardiopulmonary distress. The patient appeared well nourished and normally developed. Vital signs as documented. Head exam is unremarkable. No scleral icterus . Neck is without jugular venous distension, thyromegaly, or carotid bruits. Lungs are clear to auscultation. Cardiac exam reveals regular rate and Rhythm. First and second heart sounds no rmal. No murmurs, rubs or gallops. Abdominal exam reveals normal bowel sounds, no masses, no organomegaly and no aortic enlargement. Extremities are nonedematous and both femoral and pedal pulses are normal. W[employer] EN[employer]IC: Alert and oriented 3. No focal weakness. - Constitutional Vitals: Temp Pulse Resp BP Pulse Ox 98.1 F 87 18 94/52 98 09/12/18 02:57 09/12/18 10:00 09/12/18 02:57 09/12/18 02:57 09/12/18 02:57 General appearance: Present: no acute distress, well-nourished Results - Labs CBC & Chem 7: 09/12/18 06:39 09/11/18 16:09 Labs: Laboratory Last Values WBC 6.2 K/mm3 (4.5-11.0) 09/11/18 16:09 RBC 4.07 M/mm3 (3.65-5.03) 09/11/18 16:09 Hgb 10.5 gm/dl (10.1-14.3) 09/12/18 06:39 Hct 31.5 % (30.3-42.9) 09/12/18 06:39 MCV 88 fl (79-97) 09/11/18 16:09 MCH 30 pg (28-32) 09/11/18 16:09 MCHC 34 % (30-34) 09/11/18 16:09 RDW 15.2 % (13.2-15.2) 09/11/18 16:09 Plt Count 307 K/mm3 (140-440) 09/11/18 16:09 Lymph % (Auto) 21.2 % (13.4-35.0) 09/11/18 16:09 [place] % (Auto) 6.7 % (0.0-7.3) 09/11/18 16:09 Eos % (Auto) 0.3 % (0.0-4.3) 09/11/18 16:09 Baso % (Auto) 0.7 % (0.0-1.8) 09/11/18 16:09 Lymph # 1.3 K/mm3 (1.2-5.4) 09/11/18 16:09 [place] # 0.4 K/mm3 (0.0-0.8) 09/11/18 16:09 Eos # 0.0 K/mm3 (0.0-0.4) 09/11/18 16:09 Baso # 0.0 K/mm3 (0.0-0.1) 09/11/18 16:09 Seg Neutrophils % 71.1 % (40.0-70.0) H 09/11/18 16:09 Seg Neutrophils # 4.4 K/mm3 (1.8-7.7) 09/11/18 16:09 PT 12.8 Sec. (12.2-14.9) 09/11/18 17:57 INR 0.92 (0.87-1.13) 09/11/18 17:57 APTT 28.6 Sec. (24.2-36.6) 09/11/18 17:57 Sodium 137 mmol/L (137-145) 09/11/18 16:09 Potassium 4.3 mmol/L (3.6-5.0) 09/11/18 16:09 Chloride 97.2 mmol/L (98-107) L 09/11/18 16:09 Carbon Dioxide 23 mmol/L (22-30) 09/11/18 16:09 Anion Gap 21 mmol/L 09/11/18 16:09 BUN 19 mg/dL (7-17) H 09/11/18 16:09 Creatinine 0.9 mg/dL (0.7-1.2) 09/11/18 16:09 Estimated GFR > 60 ml/min 09/11/18 16:09 BUN/Creatinine Ratio 21 % 09/11/18 16:09 Glucose 249 mg/dL (65-100) H 09/11/18 16:09 POC Glucose 219 (70-105) H 09/12/18 12:05 Hemoglobin A1c 9.2 % (4-6) H 09/12/18 01:49 Calcium 9.1 mg/dL (8.4-10.2) 09/11/18 16:09 Total Bilirubin 0.20 mg/dL (0.1-1.2) 09/11/18 16:09 AST 13 units/L (5-40) 09/11/18 16:09 ALT 11 units/L (7-56) 09/11/18 16:09 Alkaline Phosphatase 47 units/L (35-129) 09/11/18 16:09 Total Protein 7.6 g/dL (6.3-8.2) 09/11/18 16:09 Albumin 4.2 g/dL (3.9-5) 09/11/18 16:09 Albumin/Globulin Ratio 1.2 % 09/11/18 16:09 Urine Color Yellow (Yellow) 09/11/18 18:18 Urine Turbidity Clear (Clear) 09/11/18 18:18 Urine pH 5.0 (5.0-7.0) 09/11/18 18:18 Ur Specific [place] 1.013 (1.003-1.030) 09/11/18 18:18 Urine Protein 30 mg/dl mg/dL (Negative) 09/11/18 18:18 Urine Glucose (UA) 150 mg/dL (Negative) 09/11/18 18:18 Urine Ketones 20 mg/dL (Negative) 09/11/18 18:18 Urine Blood Sm (Negative) 09/11/18 18:18 Urine Nitrite Neg (Negative) 09/11/18 18:18 Urine Bilirubin Neg (Negative) 09/11/18 18:18 Urine Urobilinogen < 2.0 mg/dL (<2.0) 09/11/18 18:18 Ur Leukocyte Esterase Sm (Negative) 09/11/18 18:18 Urine WBC (Auto) 11.0 /HPF (0.0-6.0) H 09/11/18 18:18 Urine RBC (Auto) 5.0 /HPF (0.0-6.0) 09/11/18 18:18 U Epithel Cells (Auto) 1.0 /HPF (0-13.0) 09/11/18 18:18 Hyaline Casts 3 /LPF 09/11/18 18:18 Blood Type O POSITIVE 09/11/18 16:09 Antibody Screen Negative 09/11/18 16:09
[2018-09-12 17:01] LABS: Hematocrit 29.2 % (30.3-42.9)
[2018-09-12] MEDS ORDERED: GOLYTELY PO ONE (20:00)
[2018-09-12] MEDS: LANTUS SUB-Q SCH (22:32)
[2018-09-13] MEDS: HumaLOG SUB-Q SCH ×5 (00:08→22:20)
[2018-09-13] MEDS: SODIUM CHLORIDE FLUSH SYRINGE 10 ML IV SCH ×3 (01:07→22:22)
[2018-09-13] MEDS: D5NS 1,000 ML IV SCH (02:47)
[2018-09-13 06:19] LABS: Alanine Aminotransferase 9 units/L (7-56); Albumin 3.6 g/dL (3.9-5); BUN/Creatinine Ratio 8; Blood Urea Nitrogen 7 mg/dL (7-17); Calcium 8.7 mg/dL (8.4-10.2); Hemolysis Index 9
[2018-09-13 06:26] LABS: Basophils % (Auto) 0.6 % (0.0-1.8); Eosinophils % (Auto) 0.4 % (0.0-4.3); Hematocrit 30.7 % (30.3-42.9); Hemoglobin 10.3 gm/dl (10.1-14.3); Lymphocytes # (Auto) 1.9 K/mm3 (1.2-5.4); Lymphocytes % (Auto) 42.2 % (13.4-35.0); Mean Corpuscular HGB Conc 33 % (30-34); Mean Corpuscular Volume 89 fl (79-97); Monocytes # (Auto) 0.7 K/mm3 (0.0-0.8); Monocytes % (Auto) 14.4 % (0.0-7.3); Platelet Count 245 K/mm3 (140-440); Red Blood Count 3.46 M/mm3 (3.65-5.03); Red Cell Distribution Width 15.6 % (13.2-15.2)
[2018-09-13] MEDS: PROTONIX IV SCH (10:28)
[2018-09-13] MEDS: ROCEPHIN/NS 1 GM/50 ML 1 GM/50 ML BAG IV SCH (10:28)
[2018-09-13] MEDS ORDERED: DIPRIVAN 10 MG/ML IV ONE ×3 (11:57→11:58)
[2018-09-13] MEDS ORDERED: XYLOCAINE 1% 20 mL ONE (11:57)
[2018-09-13] MEDS ORDERED: WATER FOR IRRIG STERILE IR ONE (12:01)
[2018-09-13] MEDS ORDERED: WATER FOR IRRIG STERILE ONE (12:02)
[2018-09-13] MEDS ORDERED: NACL 0.9% 1000 ML 1,000 ML ONE (12:02)
--- NOTE | 2018-09-13 12:04 | Progress Note ---
Assessment and Plan Rectal bleeding - H&H stable - No active bleeding - CT showed diverticulosis - GI consulted. For colonoscopy today Diabetes mellitus -A1c is 9.2% - Sliding scale insulin and added Lantus daily at bedtime - Consistent carbohydrate diet DVT prophylaxis - SCDs only because of GI bleed Disposition -Continue inpatient care and family with findings on colonoscopy Discharge tomorrow if unremarkable Subjective Date of service: 09/13/18 Principal diagnosis: GI bleeding Interval history: No active GI bleeding. Denies abdominal pain no nausea no vomiting no hematemesis or melena. For colonoscopy today Objective - Exam Narrative Exam: Constitutional: Well-nourished well-developed. In no distress Head: Normocephalic atraumatic Eyes: Pupils are equal round and reactive to light Nose: No enlarged turbinates, no septal deviation. Mouth: Moist mucous membranes. Neck: Supple no thyromegaly. No bruit. No JVD Heart: Regular rate and rhythm, S1-S2 normal. No rubs murmurs or gallop Lungs: Clear to auscultation bilaterally. no rales or rhonchi Abdomen: Soft, nontender. Bowel sound are present. Extremities: No edema, no cyanosis, no clubbing. Neuro: Alert oriented Oriented x3. No focal sensory or motor deficit. Skin: No rashes or hyperpigmented spots Musculoskeletal system: No joint pain or swelling Hematological: No petechia or subcutanous hemorrhages. Immunological: No multiple septic spots on the skin Lymphatic: No generalized lymphadenopathy Psychiatry: Euthymic. Calm. - Constitutional Vitals: Vital Signs - 12hr 09/13/18 09/13/18 09/13/18 02:45 07:37 08:55 Temperature 98.5 F 98.8 F Pulse Rate 82 73 Respiratory 18 20 20 Rate Blood Pressure 94/52 126/54 O2 Sat by Pulse 96 100 100 Oximetry - Labs CBC & Chem 7: 09/13/18 05:48 09/13/18 05:48 Labs: Abnormal lab results 09/12/18 09/12/18 09/12/18 Range/Units 12:05 16:18 17:26 RBC (3.65-5.03) M/mm3 Hgb 10.0 L (10.1-14.3) gm/dl Hct 29.2 L (30.3-42.9) % RDW (13.2-15.2) % Lymph % (Auto) (13.4-35.0) % [place] % (Auto) (0.0-7.3) % Glucose (65-100) mg/dL POC Glucose 219 H 239 H (70-105) Albumin (3.9-5) g/dL 09/12/18 09/13/18 09/13/18 Range/Units 22:04 05:48 05:48 RBC 3.46 L (3.65-5.03) M/mm3 Hgb (10.1-14.3) gm/dl Hct (30.3-42.9) % RDW 15.6 H (13.2-15.2) % Lymph % (Auto) 42.2 H (13.4-35.0) % [place] % (Auto) 14.4 H (0.0-7.3) % Glucose 229 H (65-100) mg/dL POC Glucose 223 H (70-105) Albumin 3.6 L (3.9-5) g/dL 09/13/18 09/13/18 Range/Units 05:59 11:38 RBC (3.65-5.03) M/mm3 Hgb (10.1-14.3) gm/dl Hct (30.3-42.9) % RDW (13.2-15.2) % Lymph % (Auto) (13.4-35.0) % [place] % (Auto) (0.0-7.3) % Glucose (65-100) mg/dL POC Glucose 221 H 120 H (70-105) Albumin (3.9-5) g/dL
--- NOTE | 2018-09-13 12:08 | Anesthesia Consultation ---
Anesthesia Consult and Med Hx Date of service: 09/13/18 - Airway Anesthetic Teeth Evaluation: Edentulous ROM Head & Neck: Adequate Mental/Hyoid Distance: Adequate Mallampati Class: Class II Intubation Access Assessment: Good - Pulmonary Exam CTA: Yes - Cardiac Exam Cardiac Exam: RRR Anesthetic Concerns: occasional skipped beats - Pre-Operative Health Status ASA Pre-Surgery Classification: ASA3 Proposed Anesthetic Plan: MAC - Pulmonary Hx Asthma: No COPD: No Hx Pneumonia: No - Cardiovascular System Hx Hypertension: Yes - Endocrine Hx End Stage Renal Disease: No Hx Insulin Dependent Diabetes: Yes - Additional Comments Anesthesia Medical History Comments: Pt is on protonix
--- NOTE | 2018-09-13 12:08 | Anesthesia Day of Surgery ---
Anesthesia Day of Surgery - Day of Surgery Patient Examined: Yes Patient H&P Reviewed: Yes Patient is NPO: Yes
--- NOTE | 2018-09-13 12:52 | Post Anesthesia Evaluation ---
- Post Anesthesia Evaluation Patient Participated: Yes Airway Patent: Yes Stable Respiratory Function: Yes Temp > 96.8F: Yes Pain Manageable: Yes Adequeate Hydration: Yes Anesthesia Complications: No
--- NOTE | 2018-09-13 13:22 | Post Operative Note ---
Pre-op diagnosis: GI bleed Post-op diagnosis: other (1. Normal EGD 2. Colonic diverticulosis 3. No evidence of GI bleed, therefore probably diverticular.) Findings: 1. Normal EGD 2. Pancolonic moderate diverticulosis 3. No evidence of old or fresh blood. Procedure: EGD/Colon Anesthesia: MAC Surgeon: KATHLEEN CRAIN Estimated blood loss: none Pathology: none Condition: stable Disposition: floor (Advance diet, and okay to D/C from GI standpoint)
--- NOTE | 2018-09-13 13:54 | Operative Report ---
PROCEDURE: Upper endoscopy and colonoscopy. PREOPERATIVE DIAGNOSIS: Gastrointestinal bleed. POSTOPERATIVE DIAGNOSIS: Diverticulosis and normal upper and lower endoscopy otherwise. SEDATION: MAC by Anesthesia. HISTORY: The patient is a 73-year-old woman, who came in with a history of rectal bleeding. This has resolved. Her hemoglobin is stable at 10. Procedure, indications, risks, and benefits were explained and consent was obtained. The patient was placed in left lateral decubitus position and sedated. Websensei video upper endoscope was passed through the mouth and oropharynx into the descending duodenum. Scope was then gradually withdrawn with close inspection of mucosa. Subsequently, the patient was rotated and a colonoscopy was performed. Video colonoscope was passed through the rectum after digital examination and passed with minimal difficulty to the cecum, which was identified by the ileocecal valve and the appendiceal orifice. Scope was then gradually withdrawn with close inspection of the mucosa. Prep was good. FINDINGS: 1. Moderate diverticulosis noted throughout the colon. 2. Otherwise, visualized colonic mucosa is normal appearing with no evidence of mass lesions, vascular lesions or inflammation. 3. Normal EGD with normal esophagus, stomach and duodenum. 4. No evidence of old or fresh blood noted. The patient tolerated procedures well without immediate complications. IMPRESSION: 1. Diverticulosis - likely source of bleeding. 2. Otherwise, normal colonoscopy. 3. Normal upper endoscopy. PLAN: 1. High fiber diet. 2. The patient to monitor for bleeding in the future and return as needed. JOB# [id number] HRC/NTS
[2018-09-13] MEDS: LANTUS SUB-Q SCH (22:19)
[2018-09-14] MEDS: HumaLOG SUB-Q SCH ×2 (08:00→11:35)
--- NOTE | 2018-09-14 10:27 | Discharge Summary ---
Providers - Providers Date of Admission: 09/11/18 19:35 Date of discharge: 09/14/18 Attending physician: JAVAD HODGE 09/12/18 00:07 Consult to Physician [CONS] Routine Comment: Consulting Provider: TRANG MINAYA Physician Instructions: Reason For Exam: GI bleed Primary care physician: ALEC GAMBLE Hospitalization Reason for admission: GI bleeding Condition: Fair Pertinent studies: CT abdomen and pelvis shows extensive diverticulosis with hiatal hernia Procedures: Colonoscopy that showed extensive diverticulosis from the cecum to the sigmoid. No active bleeding or evidence of remote bleeding identified. Hospital course: Patient is a 73 y/o female with PMH of HTN and DM who presented to ED with melena. She reports multiple episodes yesterday of dark tarry stool. Denies fever, CP, SOB, wt loss, abd pain, N/V, dysphagia, diarrhea, or constipation. Takes ASA occasionally at home. No hx of previous GI bleeding, PUD, or liver disease. No prior EGD or colonoscopy. GI consult was obtained. Colonoscopy was done. Extensive diverticulosis identified from the cecum to the sigmoid colon. There was no evidence of active GI bleed. Abdominal pain resolved. Melena resolve. Patient remains hemodynamically stable. she's therefore been discharged today to follow primary care physician in 3-5 days and to follow up with grain shipper in 7 days. Discharge planning was explained to the patient and her daughter who expressed understanding. . Disposition: TO HOME OR SELFCARE Time spent for discharge: 40 mins - Discharge Diagnoses (1) Diverticulosis Status: Acute (2) GI bleed Status: Acute (3) UTI (urinary tract infection) Status: Acute Qualifiers: Urinary tract infection type: acute cystitis (4) HTN (hypertension) Status: Chronic Qualifiers: Hypertension type: essential hypertension Qualified Code(s): I10 - Essential (primary) hypertension (5) T2DM (type 2 diabetes mellitus) Status: Chronic Qualifiers: Diabetes mellitus exterminator insulin use: without fpc use Core Measure Documentation - Palliative Care Palliative Care/ Comfort Measures: Not Applicable - Core Measures Any of the following diagnoses?: none Exam - Physical Exam Narrative exam: Constitutional: Well-nourished well-developed.In no distress Head: Normocephalic atraumatic Eyes: Pupils are equal round and reactive to light Nose: No enlarged turbinates, no septal deviation. Mouth: Moist mucous membranes. Neck: Supple no thyromegaly. No bruit. No JVD Heart: Regular rate and rhythm, S1-S2 normal. No rubs murmurs or gallop Lungs: Clear to auscultation bilaterally. no rales or rhonchi Abdomen: Soft, nontender. Bowel sound are present. Extremities: No edema, no cyanosis, no clubbing. Neuro: Alert oriented Oriented x3. No focal sensory or motor deficit. Skin: No rashes or hyperpigmented spots Musculoskeletal system: No joint pain or swelling Hematological: No petechia or subcutanous hemorrhages. Immunological: No multiple septic spots on the skin Lymphatic: No generalized lymphadenopathy Psychiatry: Euthymic. Calm. - Constitutional Vitals: Temp Pulse Resp BP Pulse Ox 98.4 F 79 14 129/75 100 09/13/18 13:14 09/13/18 13:44 09/13/18 13:44 09/13/18 13:44 09/13/18 22:00 Plan Activity: advance as tolerated, fall precautions Weight Bearing Status: Non-Weight Bearing Diet: diabetic Follow up with: ALEC GAMBLE MD [Primary Care Provider] - 14 Days Forms: Accompanied Note Prescriptions: amLODIPine [Norvasc] 10 mg PO DAILY #30 tablet Insulin Glargine [Lantus VIAL] 10 units SUB-Q QHS #300 units metFORMIN [Glucophage] 500 mg PO BID #60 tablet Pravastatin [Pravachol] 20 mg PO DAILY #30 tablet
[2018-09-14] MEDS: ROCEPHIN/NS 1 GM/50 ML 1 GM/50 ML BAG IV SCH (10:30)
[2018-09-14] MEDS: SODIUM CHLORIDE FLUSH SYRINGE 10 ML IV SCH (11:00)
[2018-09-14 11:24] VITALS: BP 129/75
== END 2018-09-14 14:26 | disposition home or self-care (01) | DRG 379 ==
LOC: ED 15:27 → 2B-ACE 19:35
PROVIDERS: ADMIT Internal Medicine; ATTEND Family Medicine
PROC: 0DJ08ZZ Inspection of Upper Intestinal Tract, Via Natural or Artificial Opening Endoscopic (ICD-10-PCS; principal; 2018-09-13)
PROC: 0DJD8ZZ Inspection of Lower Intestinal Tract, Via Natural or Artificial Opening Endoscopic (ICD-10-PCS; 2018-09-13)
DX: K57.31 Diverticulosis of large intestine without perforation or abscess with bleeding (principal); E11.9 Type 2 diabetes mellitus without complications; I10 Essential (primary) hypertension; Z79.84 Long term (current) use of oral hypoglycemic drugs
CPT/HCPCS: 36415; 74176; 80053; 81001; 82270; 82962; 83036; 85014; 85018; 85025; 85610; 85730; 86850; 86900; 86901; G0378; C9113; J0696; J1815; J1956; J2704; J7030; J7042